=== PATIENT | male | born 2000 | race African-American/Black ===

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

== ENCOUNTER 2019-11-10 16:30 | Emergency (ER) | payer SELFPAY ==
[~2019-11-10] VITALS: Ht 182.9 cm; Wt 67.6 kg
[2019-11-10] MEDS ORDERED: ASPirin 81 mg TAB PO ONE (16:45)
[2019-11-10 17:32] LABS: Basophils # (auto) 0 10 ^3/uL (0-0.2); Basophils % (auto) 0.7 % (0.0-2.0); Eosinophils # (auto) 0.6 10 ^3/uL (0-0.8); Eosinophils % (auto) 8.7 % (0.0-7.0); Hematocrit 51.2 % (41.0-53.0); Hemoglobin 17.3 g/dL (13.5-17.5); Lymphocytes # (auto) 2.4 10 ^3/uL (0.4-5.4); Lymphocytes % (auto) 35.5 % (10.0-50.0); Mean Corpuscular Hemoglobin 30.1 pg (28.0-32.0); Mean Corpuscular Hgb Conc. 33.7 g/dL (32.0-36.0); Mean Corpuscular Volume 89.4 fL (80.0-100.0); Monocytes # (auto) 0.5 10 ^3/uL (0-1.3); Monocytes % (auto) 7.2 % (0.0-12.0); Neutrophils # (auto) 3.2 10 ^3/uL (1.6-8.6); Neutrophils % (auto) 47.9 % (37.0-80.0); Nucleated Red Blood Cells % 0.1 %; Platelet Count (auto) 375 10^3/uL (140-450); Red Blood Cells 5.72 10^6/uL (4.5-5.90); Red Cell Distribution Width 13.5 % (11.8-14.3); White Blood Cell 6.7 10^3/uL (4.4-10.8)
[2019-11-10 17:45] LABS: INR 1.04 (0.9-1.15); Partial Thromboplastin Time 27.6 sec (23.64-32.05)
[2019-11-10 17:47] LABS: Alanine Aminotransferase 22 U/L (16-61); Albumin 4.3 g/dL (3.4-5.0); Anion Gap 4 (5-15); Aspartate Aminotransferase 14 U/L (15-37); BUN/Creatinine Ratio 7.7; Blood Urea Nitrogen 9 mg/dL (7-18); Calcium 8.9 mg/dL (8.5-10.1); Carbon Dioxide 29 mmol/L (21-32); Chloride 105 mmol/L (98-107); GFR African American 102 mL/min; GFR Non-African American 84 mL/min; Glucose 87 mg/dL (74-106); Potassium 4.2 mmol/L (3.5-5.1); Sodium 138 mmol/L (136-145)
[2019-11-10 17:52] LABS: Alkaline Phosphatase 107 U/L (45-117); Bilirubin, Total 1.1 mg/dL (0.2-1.0); Total Protein 8.3 g/dL (6.4-8.2)
[2019-11-10 18:01] VITALS: BP 115/74
[2019-11-10 18:38] LABS: Urine Bacteria NONE SEEN /hpf (None Seen); Urine Blood Negative /uL (Negative); Urine Specific Gravity 1.023 (1.001-1.035); Urine WBC <1 /hpf (0 - 3)
== END 2019-11-10 19:01 | disposition home or self-care (01) ==
LOC: ER 16:30
DX: R07.89 Other chest pain (principal); F41.9 Anxiety disorder, unspecified
CPT/HCPCS: 36415; 71046; 80053; 81001; 83735; 84443; 84484; 85025; 85610; 85730; 93005

== ENCOUNTER 2020-01-02 15:05 | Emergency (ER) | payer SELFPAY ==
[~2020-01-02] VITALS: Ht 182.9 cm; Wt 75.7 kg
[2020-01-02 15:27] VITALS: BP 125/61
[2020-01-02 15:41] LABS: Basophils # (auto) 0.1 10 ^3/uL (0-0.2); Basophils % (auto) 1.1 % (0.0-2.0); Eosinophils # (auto) 0 10 ^3/uL (0-0.8); Eosinophils % (auto) 0.1 % (0.0-7.0); Hematocrit 48.2 % (41.0-53.0); Hemoglobin 16.4 g/dL (13.5-17.5); Lymphocytes # (auto) 1.7 10 ^3/uL (0.4-5.4); Mean Corpuscular Hemoglobin 30.4 pg (28.0-32.0); Mean Corpuscular Hgb Conc. 34.1 g/dL (32.0-36.0); Mean Corpuscular Volume 89.1 fL (80.0-100.0); Monocytes # (auto) 1.1 10 ^3/uL (0-1.3); Monocytes % (auto) 16.9 % (0.0-12.0); Neutrophils # (auto) 3.6 10 ^3/uL (1.6-8.6); Neutrophils % (auto) 55.9 % (37.0-80.0); Nucleated Red Blood Cells % 0.3 %; Platelet Count (auto) 285 10^3/uL (140-450); Red Blood Cells 5.41 10^6/uL (4.5-5.90); Red Cell Distribution Width 13.3 % (11.8-14.3); White Blood Cell 6.5 10^3/uL (4.4-10.8)
[2020-01-02 15:49] LABS: Calcium 9.4 mg/dL (8.5-10.1); Chloride 101 mmol/L (98-107); Potassium 3.8 mmol/L (3.5-5.1); Sodium 134 mmol/L (136-145)
[2020-01-02 15:56] LABS: Alanine Aminotransferase 28 U/L (16-61); Alkaline Phosphatase 87 U/L (45-117); Anion Gap 9 (5-15); Aspartate Aminotransferase 27 U/L (15-37); BUN/Creatinine Ratio 13.3; Blood Urea Nitrogen 19 mg/dL (7-18); Carbon Dioxide 24 mmol/L (21-32); GFR African American 80 mL/min; GFR Non-African American 66 mL/min; Glucose 98 mg/dL (74-106)
== END 2020-01-02 17:55 | disposition home or self-care (01) ==
LOC: ER 15:05
DX: U07.1 COVID-19 (principal); R07.89 Other chest pain; B34.9 Viral infection, unspecified
CPT/HCPCS: 36415; 71045; 80053; 84484; 85025; 87070; 87635; 87804; 87880; 93005

== ENCOUNTER 2020-01-04 17:40 | Emergency (ER) | payer SELFPAY ==
[~2020-01-04] VITALS: Ht 182.9 cm; Wt 75.7 kg
[2020-01-04 17:56] VITALS: BP 113/68
== END 2020-01-04 20:06 | disposition left against medical advice (07) ==
LOC: ER 17:40
DX: R07.9 Chest pain, unspecified (principal); Z53.21 Procedure and treatment not carried out due to patient leaving prior to being seen by health care provider
CPT/HCPCS: 93005

== ENCOUNTER 2020-05-10 12:00 | Emergency (ER) | payer MEDICAID ==
[~2020-05-10] VITALS: Ht 182.9 cm; Wt 77.1 kg
[2020-05-10 12:35] VITALS: BP 129/90
== END 2020-05-10 14:42 | disposition home or self-care (01) ==
LOC: ER 12:00
DX: K04.7 Periapical abscess without sinus (principal); K02.9 Dental caries, unspecified

== ENCOUNTER 2021-07-03 03:40 | Emergency (ER) | payer SELFPAY ==
[~2021-07-03] VITALS: Ht 182.9 cm; Wt 70.8 kg
[2021-07-03 03:40] VITALS: BP 128/83
== END 2021-07-03 06:27 | disposition left against medical advice (07) ==
LOC: ER 03:44
DX: R51.9 Headache, unspecified (principal); Z53.21 Procedure and treatment not carried out due to patient leaving prior to being seen by health care provider

== ENCOUNTER → 2021-09-22 | Emergency (ER) | payer SELFPAY ==
[~2021-09-22] VITALS: Ht 182.9 cm; Wt 76.2 kg
[~2021-09-22] MED LIST changes: +AMOX250C3 PO
[2021-09-22 02:02] VITALS: BP 124/76
== END | disposition left against medical advice (07) ==
LOC: ER 01:57
DX: J02.9 Acute pharyngitis, unspecified (principal); Z53.21 Procedure and treatment not carried out due to patient leaving prior to being seen by health care provider

== ENCOUNTER 2021-09-25 17:53 | Emergency (ER) | payer MEDICAID ==
[~2021-09-25] VITALS: Ht 182.9 cm; Wt 76.2 kg
[~2021-09-25 17:53] MED LIST changes: -AMOX250C3 PO
[2021-09-25] MEDS ORDERED: AMOX250C3 PO (20:44)
[2021-09-25 20:48] VITALS: BP 106/70
== END 2021-09-25 21:05 | disposition home or self-care (01) ==
LOC: ER 17:53
DX: J03.90 Acute tonsillitis, unspecified (principal); Z20.822 Contact with and (suspected) exposure to COVID-19
CPT/HCPCS: 36415

== ENCOUNTER 2025-03-10 14:39 | Emergency (ER) | payer MEDICAID, OTHER ==
[~2025-03-10] VITALS: Ht 182.9 cm; Wt 68.9 kg
[~2025-03-10 14:39] MED LIST changes: +AMOX250C3 PO
--- NOTE | 2025-03-10 15:44 | ED.PDOC ---
HPI (NEURO) HPI Comments A 24 YEAR OLD MALE PRESENTS TO THE ED WITH COMPLAINT OF HEADACHE S/P HEAD INJURY. PATIENT STATES HE ACCIDENTALLY TRIPPED AND FELL AND HIT THE BACK OF HIS HEAD ON THE GROUND 3 DAYS AGO. PATIENT REPORTS HE BEGAN TO HAVE A HEADACHE 2 DAYS AGO AND HAS BEEN EXPERIENCING THIS HEADACHE SINCE THEN. PATIENT RATES THE SEVERITY OF HIS PAIN 8/10 AT THIS TIME. PATIENT DENIES VISION CHANGES, SLURRED SPEECH, ONE-SIDED WEAKNESS, FACIAL DROOP, LOC, FEVER, CHILLS, SHORTNESS OF BREATH, CHEST PAIN, ABDOMINAL PAIN, NAUSEA, VOMITING, OR OTHER COMPLAINTS. NO OTHER SYMPTOMS OR MODIFYING FACTORS AT THIS TIME. PATIENT IS ALERT, ORIENTED X 4, AND HAS STEADY GAIT. Chief Complaint: Headache Time Seen by MD: 14:52 Primary Care Provider: NONE Reviewed Notes: Nurses Notes, Medications, Allergies Information Source: Patient Mode of Arrival: Ambulatory Severity: Moderate Headache Severity: Moderate Timing: Days Duration: Since onset Prehospital treatment: None Headache Quality: Aching Headache Location: Generalized Onset: At rest Circumstances: Other (HIT HEAD) Symptoms: Other (HEADACHE) Modifying factors: Nothing Associated Signs and Symptoms: Headache Past Medical History PAST MEDICAL HISTORY: Denies Surgical History: Denies all surgeries Family History Family History: Reviewed,noncontributory to illness Social History Smoker: Non-Smoker Alcohol: Denies ETOH Use Drugs: Denies Drug Use Lives In: Home Constitutional: reports: fatigue; denies: chills, diaphoresis, fever, malaise, sweats, weakness, others EENTM: denies: blurred vision, double vision, ear bleeding, ear discharge, ear drainage, ear pain, ear ringing, eye pain, eye redness, hearing loss, mouth pain, mouth swelling, nasal discharge, nose bleeding, nose congestion, nose pain, photophobia, tearing, throat pain, throat swelling, voice changes, others Respiratory: denies: cough, hemoptysis, orthopnea, SOB at rest, shortness of breath, SOB with excertion, stridor, wheezing, others Cardiovascular: denies: chest pain, dizzy spells, diaphoresis, Dyspnea on exertion, edema, irregular heart beat, left arm pain, lightheadedness, palpitations, PND, syncope, others Gastrointestinal: denies: abdomen distended, abdominal pain, blood streaked bowels, constipated, diarrhea, dysphagia, difficulty swallowing, hematemesis, melena, nausea, poor appetite, poor fluid intake, rectal bleeding, rectal pain, vomiting, others Genitourinary: denies: burning, dysuria, flank pain, frequency, hematuria, incontinence, penile discharge, penile sore, pain, testicle pain, testicle swelling, urgency, others Neurological: reports: dizziness, headache; denies: fainting, left sided numbness, left sided weakness, numbness, paresthesia, pre-existing deficit, right sided numbness, right sided weakness, seizure, speech problems, tingling, tremors, weakness, others Musculoskeletal: denies: back pain, gout, joint pain, joint swelling, muscle pain, muscle stiffness, neck pain, others Integumetry: reports: bruises (RIGHT SIDE SCALP. ); denies: change in color, change in hair/nails, dryness, laceration, lesions, lumps, rash, wounds, others Allergic/Immunocompromised: denies: Difficulty Healing, Frequent Infections, Hives, Itching, others Hematologic/Lymphatic: denies: anemia, blood clots, easy bleeding, easy bruising, swollen glands, others Psychiatric: denies: anxiety, bipolar disorder, depression, hopeless, panic disorder, schizophrenia, sleepless, suicidal, others All Other Systems: Reviewed and Negative Physical Exam General Appearance: No Apparent Distress, Normal, Other (FATIGUE ) HEENT: Head (A BUMP ON RIGHT SIDE SCALP, NO BONY TENDERNESS AND DEFORMITY. ), Normal ENT Inspection, PERRL/EOMI, Pharynx Normal, TMs Normal Neck: Full Range of Motion, Non-Tender, Normal, Normal Inspection Respiratory: Chest Non-Tender, Lungs Clear, No Accessory Muscle Use, No Respiratory Distress, Normal Breath Sounds Cardiovascular: No Edema, No JVD, No Murmur, No Gallop, Normal Peripheral Pulses, Regular Rate/Rhythm Breast Exam: Deferred Gastrointestinal: No Organomegaly, Non Tender, No Pulsatile Mass, Normal Bowel Sounds, Soft Genitalia: Deferred Pelvic: Deferred Rectal: Deferred Extremities: No calf tenderness, Normal capillary refill, Normal inspection, Normal range of motion, Non-tender, No pedal edema Musculoskeletal : Apperance: Normal Neurologic: Alert, machine tech II-XII nml as Tested, No Motor Deficits, Normal Affect, Normal Mood, No Sensory Deficits Cerebellar Function: Normal Reflexes: Normal Skin: Bruises (RIGHT SIDE SCALP. ), Dry, Normal Color, Warm Peripheral Pulses: 2+ carotid (R), 2+ carotid (L), 2+ dorsalis pedis (R), 2+ dorsalis pedis (L) Lymphatic: No Adenopathy Was a procedure done? Was a procedure done?: No Differential Diagnosis (SZ) Seizure: N/A General Weakness: N/A Headache: Cluster, Migraine, Closed Head Injury, Epidural Hemorrhage, Intracerebral Hemorrhage, Subdural Hemorrhage, Sinusitis X-Ray, Labs, Meds, VS Vital Signs Date Time Temp Pulse Resp B/P (MAP) Pulse Ox O2 Delivery O2 Flow Rate FiO2 03/10/25 15:28 96 14 99 Room Air 0 03/10/25 15:28 98.1 96 16 126/76 (93) 99 98.1 03/10/25 14:45 98.5 109 18 123/83 98 98.5 Current Medications Medications (Trade) Dose Ordered Sig/Faye Route Start Time Stop Time Status Last Admin Acetaminophen/ Hydrocodone Bitart ([place] 5/325MG Tab) 1 tab ONCE ONCE PO 03/10/25 16:45 03/10/25 16:46 DC 03/10/25 16:43 CLINICAL HISTORY: INJURY TECHNIQUE: Helical scanning was performed of the head from the skull base to the vertex. Multiplanar reconstructions were performed. This exam was performed acc ording to our departmental dose optimization program. Up-to-date CT equipment and radiation dose reduction techniques are utilized as appropriate. CTDI 57.2 DLP 25.6 COMPARISON: None FINDINGS: There is diffuse scalp soft tissue swelling. No score fracture is seen. There is hypoattenuation at the bilateral anterior frontal lobes, [id number] on the right and mild on the left. There is a small amount of heterogeneous density at the right anterior frontal lobe, likely blood products. The ventricular caliber is maintained. No midline shift. The cerebellar tonsils are appropriately located. IMPRESSION: Small to moderate hemorrhagic parenchymal contusion at the right frontal lobe. Small parenchymal contusion at the left frontal lobe. FINDINGS AND INTERPRETATION DISCUSSED WITH DR NAGY AT DATE AND TIME 03/10/2025 04:27 PM ATED BY: HUGO EAST MD DICTATED DATE/TIME: 03/10/251627 SIGNED BY: HUGO EAST MD SIGNED DATE/TIME: 03/10/251627 CC: X-Ray, Labs, Meds, VS Comment EXTERNAL MEDICAL RECORDS REVIEWED: [NONE] INDEPENDENT HISTORIANS: [NONE] SOCIAL DETERMINANTS OF HEALTH: [NONE] LABS ORDERED: NONE REVIEWED AND INTERPRETED RESULTS: NONE IMAGING ORDERED: CT BRAIN TREATMENTS ORDERED: NORCO 5/325MG PO AND KEPPRA 1000MG IVP PROCEDURES PERFORMED: NONE CRITICAL CARE TIME: NONE I HAVE DISCUSSED THE PATIENT WITH THE ATTENDING PHYSICIAN, DR. SHAVER HE AGREES WITH THE PATIENT'S PLAN OF CARE. DUE TO THE PATIENT'S CT SCAN RESULTS SHOWING A HEMORRHAGIC PARENCHYMAL CONTUSION, I HAVE DETERMINED THE PATIENT NEEDS TO BE TRANSFERRED TO ANOTHER FACILITY DUE TO A NEED FOR A HIGHER LEVEL OF CARE. OTHER HOSPITALS WILL BE CONTACTED FOR TRANSFER OF THIS PATIENT. 1650: I HAVE CALLED [facility] AND HAVE SPOKE TO DR. KISER REGARDING THIS PATIENT'S CASE. AFTER DISCUSSING THE PATIENT'S CT SCAN RESULTS AND CONDITION SHE HAS SAID SHE HAS TO CONSULT THE ON-CALL NEUROSURGEON FIRST AND SHE WILL CALL BACK. 1715: DR. KISER HAS CALLED BACK AND SHE HAS SAID THE ON-CALL NEUROSURGEON STATED THE PATIENT IS NOT A CANDIDATE FOR TRANSFER AT THIS TIME AND OBSERVE THE PATIENT FOR THE NEXT [address] SCAN AFTER 6 HOURS. 1730: I HAVE CALLED [facility] AND HAVE SPOKEN TO DR. BROWN REGARDING THIS PATIENT'S CASE. AFTER DISCUSSED THE PATIENT'S CT SCAN RESULTS AND CONDITION SHE HAS ACCEPTED THE PATIENT FOR TRANSFER AT THIS TIME.SHE HAS SUGGESTED GIVING THE PATIENT KEPPRA 1G IV. Images Reviewed?: Images reviewed and evaluated by me Time of 1ST Reevaluation: 17:44 Reevaluation 1ST: Unchanged Patient Education/Counseling: Diagnosis, Treatment Family Education/Counseling: Diagnosis, Treatment Departure 1 Departure Time of Disposition: 17:44 Impression: Primary Impression: Cerebral parenchymal hemorrhage Qualified Codes: S06.340A - Traumatic hemorrhage of right cerebrum without loss of consciousness, initial encounter Additional Impression: Status post fall Disposition: 02 SHORT TERM HOSPITAL Condition: Serious Additional Instructions: Critical Care Note Critical Care Time?: No Stability Stability form required: No Stable for transfer: Intended for transfer, To designated facility I personally scribed for MONICA NAGY ([email or web address]) on 03/10/25 at 15:44. Electroni elizabeth submitted by Segun Kat ([email or web address]). I personally scribed for MONICA NAGY ([email or web address]) on 03/10/25 at 16:41. Electronically submitted by Segun Kat ([email or web address]). I personally scribed for MONICA NAGY ([email or web address]) on 03/10/25 at 16:56. Electronically submitted by Segun Kat ([email or web address]). I personally scribed for MONICA NAGY ([email or web address]) on 03/10/25 at 17:24. Electronically submitted by Segun Kat ([email or web address]). I personally scribed for MONICA NAGY ([email or web address]) on 03/10/25 at 17:33. Electronically submitted by Segun Kat ([email or web address]). MONICA NAGY Mar 10, 2025 15:44
--- NOTE | 2025-03-10 16:30 | DVH ---
CLINICAL HISTORY: INJURY TECHNIQUE: Helical scanning was performed of the head from the skull base to the vertex. Multiplanar reconstructions were performed. This exam was performed according to our departmental dose optimizat ion program. Up-to-date CT equipment and radiation dose reduction techniques are utilized as appropri ate. CTDI 57.2 DLP . COMPARISON: None FINDINGS: There is diffuse scalp soft tissue swelling. No score fracture is seen. There is hypoattenuation at the bilateral anterior frontal lobes, [id number] on the right and m ild on the left. There is a small amount of heterogeneous density at the right anterior frontal lobe, likely blood products. The ventricular caliber is maintained. No midline shift. The cerebellar tonsils are appropriately loc ated. IMPRESSION: Small to moderate hemorrhagic parenchymal contusion at the right frontal lobe. Small parenchymal contusion at the left frontal lobe. FINDINGS AND INTERPRETATION DISCUSSED WITH DR NAGY AT DATE AND TIME 03/10/2025 04:27 PM
[2025-03-10] MEDS: HYDROcodone-ACET 5/325MG TAB PO ONE (16:43)
[2025-03-10] MEDS: levETIRAcetam 1000 mg/100ml 100 ML IV ONE (18:03)
[2025-03-10] MEDS: ONDANSETRON HCL 4 MG/2 ML VIAL IV ONE (18:37)
[2025-03-10] MEDS: MORPHINE SULFATE 4 MG/ML SYR/VIAL IV ONE (18:38)
[2025-03-10 20:10] VITALS: BP 98/53; PULSE 69; RESP 14; TEMP 98; O2SAT 94
== END 2025-03-10 20:14 | disposition short-term general hospital (02) ==
LOC: ER 14:39
DX: S06.340A Traumatic hemorrhage of right cerebrum without loss of consciousness, initial encounter (principal); W01.0XXA Fall on same level from slipping, tripping and stumbling without subsequent striking against object, initial encounter; Y93.89 Activity, other specified; Y92.89 Other specified places as the place of occurrence of the external cause; Y99.8 Other external cause status
CPT/HCPCS: 70450; 96374; 96375; 99285; J1953; J2270; J2405